=== PATIENT | male | born 2000 | race Two or more races ===

== ENCOUNTER 2021-08-04 17:29 | Emergency (ER) | payer SELFPAY ==
[~2021-08-04] VITALS: Ht 172.7 cm; Wt 63.5 kg
[2021-08-04 17:45] VITALS: BP 115/56
== END 2021-08-04 18:16 | disposition home or self-care (01) ==
LOC: ER 17:29
DX: M79.18 Myalgia, other site (principal); F12.10 Cannabis abuse, uncomplicated; V43.52XA Car driver injured in collision with other type car in traffic accident, initial encounter; Y93.89 Activity, other specified; Y92.488 Other paved roadways as the place of occurrence of the external cause; Y99.8 Other external cause status